=== PATIENT | female | born 1975 | race Caucasian/White ===

== ENCOUNTER 2017-05-05 10:48 | Day surgery (SDC) | payer MEDICAID ==
[~2017-05-05] VITALS: Ht 162.6 cm; Wt 71.7 kg
[~2017-05-05 10:48] MED LIST: MULT-252 PO
[2017-05-05] MEDS ORDERED: LACTATED RINGERS 1,000 ML IV SCH (11:07)
[2017-05-05 11:08] VITALS: BP 130/89
[2017-05-05] MEDS ORDERED: LIDOCAINE 1%, 2ML ONE (11:08)
[2017-05-05 11:23] LABS: HCG UR OBC PASS
[2017-05-05] MEDS ORDERED: LIDOCAINE 1%, 2ML SQ PRN (11:30)
[2017-05-05] MEDS ORDERED: FENTANYL PF 250 MCG/5ML ONE (12:19)
[2017-05-05] MEDS ORDERED: MIDAZOLAM 1 MG/ML, 2ML ONE (12:19)
[2017-05-05] MEDS ORDERED: MEPERIDINE/PF 25MG/0.5ML IVPush PRN (13:00)
[2017-05-05] MEDS ORDERED: ONDANSETRON 2MG/ML, 2ML IVPush PRN (13:00)
[2017-05-05] MEDS ORDERED: PROMETHAZINE 25 MG/ML, 1ML IV PRN (13:00)
[2017-05-05] MEDS ORDERED: METOPROLOL 1 MG/ML, 5ML IV PRN (13:00)
[2017-05-05] MEDS ORDERED: LABETALOL 5MG/ML, 20ML IV PRN (13:00)
[2017-05-05] MEDS ORDERED: HYDROmorphone 1 MG/ML, 1ML IV PRN (13:00)
[2017-05-05] MEDS ORDERED: ALBUTEROL SULFATE 2.5 MG/3 ML NPPB PRN (13:00)
[2017-05-05] MEDS ORDERED: EPHEDRINE 50 MG/ML, 1ML IVPush PRN (13:00)
[2017-05-05] MEDS ORDERED: METOCLOPRAMIDE 5 MG/ML, 2ML IV PRN (13:00)
[2017-05-05] MEDS ORDERED: ACETAMINOPHEN 325 MG TABLET PO PRN (13:00)
[2017-05-05] MEDS ORDERED: OXYcodone 5 MG/5 ML ORAL.SOL UDC PO PRN (13:00)
[2017-05-05] MEDS ORDERED: ACETAMINOPHEN 650 MG/20.3 ML UDC ONE (13:43)
[2017-05-05] MEDS ORDERED: OXYcodone 5 MG/5 ML ORAL.SOL UDC ONE (13:43)
[2017-05-05] MEDS ORDERED: FENTANYL PF 100 MCG/2ML ONE (13:43)
[2017-05-05] MEDS: FENTANYL PF 100 MCG/2ML IV PRN ×2 (13:45→13:54)
[2017-05-05] MEDS ORDERED: CEFAZOLIN 1,000 MG ONE (16:53)
[2017-05-05] MEDS ORDERED: NEOSTIGMINE 1 MG/ML, 10ML ONE (16:53)
[2017-05-05] MEDS ORDERED: PROPOFOL 10 MG/ML, 20ML ONE (16:53)
[2017-05-05] MEDS ORDERED: ROCURONIUM 10 MG/ML ONE (16:53)
[2017-05-05] MEDS ORDERED: EPHEDRINE 50 MG/ML, 1ML ONE (16:53)
[2017-05-05] MEDS ORDERED: DEXAMETHASONE 4 MG/ML, 1ML ONE (16:53)
[2017-05-05] MEDS ORDERED: GLYCOPYRROLATE 0.2MG/1ML ONE (16:53)
[2017-05-05] MEDS ORDERED: ONDANSETRON 2MG/ML, 2ML ONE (16:53)
== END 2017-05-05 16:35 ==
LOC: OUT 10:48
PROVIDERS: ATTEND Obstetrics & Gynecology
DX: Z30.2 Encounter for sterilization (principal)
CPT/HCPCS: 58661; 81025; 88302; J0690; J1100; J2250; J2405; J2704; J2710; J3010; J3490; J7120

== ENCOUNTER 2020-02-01 03:55 | Emergency (ER) | payer MEDICAID ==
[~2020-02-01] VITALS: Ht 162.6 cm; Wt 71.6 kg
--- NOTE | 2020-02-01 04:17 | NUR ---
THIS IS A 44 YO FEMALE COMING IN FOR "I FEEL DIZZY WHEN I CLOSE MY EYES, THEN I FEEL NAUSEOUS AND VOMITING" STARTING AT APPROX 2200 LAST NIGHT. PATIENT ALSO C/O INTERMITTENT PICKENS, AND "IT FEELS LIKE MY HEART IS BEATING FAST". A&OX4, DENIES ANY MEDICAL HX, EKG DONE IN TRIAGE. ALL MONITORING IN PLACE, NSR ON RESIDENT CARE COORDINATOR. CALL LIGHT IN REACH. DENIES FURTHER NEEDS AT THIS TIME. AWAITING ERP EVAL.
[2020-02-01] MEDS ORDERED: ONDANSETRON ODT 4 MG ONE (05:14)
[2020-02-01] MEDS ORDERED: MECLIZINE CHEWABLE 25 MG TAB ONE ×2 (05:16→05:46)
--- NOTE | 2020-02-01 05:27 | NUR ---
PATIENT MEDICATED PER EMAR, TOLERATED WELL. PATIENT TO CT AT THIS TIME
[2020-02-01] MEDS ORDERED: MECLIZINE CHEWABLE 25 MG TAB PO ONE ×2 (05:30→06:00)
[2020-02-01] MEDS ORDERED: ONDANSETRON ODT 4 MG PO ONE (05:30)
[2020-02-01] MEDS ORDERED: PROMETHAZINE 25 MG/ML, 1ML ONE (05:49)
[2020-02-01 05:50] LABS: BASOPHILS # (AUTO) 0.03 x10^3/uL (0-0.1); BASOPHILS % (AUTO) 0 % (0-1); EOSINOPHILS # (AUTO) 0.11 x10^3/uL (0-0.4); EOSINOPHILS % (AUTO) 1 % (1-7); LYMPHOCYTES % (AUTO) 22 % (22-44); MD NO; MEAN CORPUSCULAR HGB CONC 33.5 g/dL (32.4-35.8); MEAN CORPUSCULAR VOLUME 92.6 fL (80-100); MEAN PLATELET VOLUME 9.4 fL (7.4-10.4); MONOCYTES # (AUTO) 0.58 x10^3/uL (0.2-0.8); MONOCYTES % (AUTO) 8 % (2-9); NEUTROPHILS % (AUTO) 69 % (42-75); PLATELET COUNT 239 x10^3/uL (130-400); RED BLOOD COUNT 4.09 x10^6/uL (3.82-5.3); RED CELL DISTRIBUTION WIDTH 13.1 % (9.6-15.2)
--- NOTE | 2020-02-01 05:50 | NUR ---
PATIENT THREW UP MEDS, ERP AWARE.
[2020-02-01 05:55] LABS: ALANINE AMINOTRANSFERASE 25 U/L (12-78); ALBUMIN 3.6 g/dL (3.4-5.0); ANION GAP 4 mmol/L (5-15); CHLORIDE 108 mmol/L (98-107)
[2020-02-01 05:58] LABS: ALKALINE PHOSPHATASE 60 U/L (45-117); BILIRUBIN,TOTAL 0.2 mg/dL (0.2-1.0); CREATININE 0.78 mg/dL (0.55-1.02); TOTAL PROTEIN 7.4 g/dL (6.4-8.2)
[2020-02-01] MEDS ORDERED: PROMETHAZINE 25 MG/ML, 1ML IM ONE (06:00)
--- NOTE | 2020-02-01 06:00 | NUR ---
PATIENT MEDICATED PER EMAR, TOLERATED WELL
--- NOTE | 2020-02-01 06:37 | NUR ---
Patient given discharge instructions and they have confirmed that they understand the instructions. Patient ambulatory with steady gait.
[2020-02-01 06:38] VITALS: BP 115/69
== END 2020-02-01 06:43 | disposition home or self-care (01) ==
LOC: ED 04:15
DX: R42 Dizziness and giddiness (principal); I45.9 Conduction disorder, unspecified; R51 Headache; Z90.710 Acquired absence of both cervix and uterus
CPT/HCPCS: 36415; 70450; 80053; 83690; 85025; 93005; 96372; 99285; J2550; Q0162